=== PATIENT | male | born 1965 | race Caucasian/White ===

== ENCOUNTER 2022-05-12 14:31 | Day surgery (SDCO) | payer OTHER ==
[~2022-05-12] VITALS: Ht 180.3 cm; Wt 105.9 kg
[2022-05-12 15:28] LABS: BASOPHIL 0.5 % (0-2); EOSINOPHIL 3.2 % (0-5); HGB 15.3 g/dl (13.2-18.0); LYMPHOCYTE 50.2 % (15-48); MCH 29.7 pg (25.0-31.0); MCV 87.2 fL (78.0-100.0); MONOCYTE 8.8 % (0-12); MPV 11.8 fL (6.0-9.5); NEUTROPHIL 37.1 % (41-80); NRBC 0; PLT 219 K/uL (150-400); RBC 5.16 M/uL (4.70-6.00); RDW 12.6 % (11.5-14.0); WBC 6.2 K/uL (4.0-10.5)
[2022-05-12 15:36] LABS: INR 2.65 (0.9-1.2); PROTHROMBIN TIME 27.3 SECONDS (11.9-13.9)
[2022-05-12 15:43] LABS: ALBUMIN 3.9 g/dL (3.4-5.0); BILIRUBIN - TOTAL 0.8 mg/dL (0.2-1.0); BUN/CREAT RATIO (CALC) 16.7 RATIO; CREATININE 0.96 mg/dL (0.67-1.17); GLOBULIN (CALCULATION) 3.4 g/dL; MAGNESIUM 1.9 mg/dL (1.8-2.4); POTASSIUM 3.7 mmol/L (3.5-5.1); TOTAL PROTEIN 7.3 g/dL (6.4-8.2)
[2022-05-12] MEDS ORDERED: JANTOVEN7.5 MG PO (18:40)
[2022-05-12] MEDS ORDERED: [UNRECOGNIZED DRUG - OTHER] PO (18:42)
--- NOTE | 2022-05-13 04:53 | NUR ---
PT RESTING IN BED WITH EYES CLOSED, RESP EVEN AND UNLABORED, PT C/O PAIN TO CHEST THAT IS INTERMITTENT AND THAT DOES NOT LAST LONG, NO C/O OF DIZZINESS OR SOA.STATES THAT HE FEELS TIRED. C/O ARIAS D/T NITRO- TYLENOL WAS GIVEN BUT ARIAS HAS LINGERED THROUGHOUT THE NIGHT. PT NPO SINCE MIDLIGHT,
[2022-05-13 06:07] LABS: INR 3.07 (0.9-1.2); PROTHROMBIN TIME 30.6 SECONDS (11.9-13.9)
[2022-05-13 06:20] LABS: BUN/CREAT RATIO (CALC) 14.6 RATIO; CREATININE 0.96 mg/dL (0.67-1.17)
--- NOTE | 2022-05-13 12:11 | NUR ---
PATIENT DISCHARGED TO HOME WITH FAMILY. IV AND HEART MONITOR REMOVED.
== END 2022-05-13 12:00 | disposition home or self-care (01) ==
LOC: FER 14:31 → FTCU 17:39
PROVIDERS: Emergency Medicine; ADMIT Family Medicine
DX: R07.89 Other chest pain (principal); I12.9 Hypertensive chronic kidney disease with stage 1 through stage 4 chronic kidney disease, or unspecified chronic kidney disease; E11.22 Type 2 diabetes mellitus with diabetic chronic kidney disease; N18.2 Chronic kidney disease, stage 2 (mild); E11.65 Type 2 diabetes mellitus with hyperglycemia; E66.9 Obesity, unspecified; Z79.01 Long term (current) use of anticoagulants
CPT/HCPCS: 36415; 71045; 80048; 80053; 82550; 83036; 83735; 83880; 84484; 85025; 85610; 85730; 93005; 94010; 94760; G0378